=== PATIENT | male | born 1975 | race African-American/Black ===

== ENCOUNTER 2017-03-09 08:16 | Emergency (ER) | payer OTHER, BC ==
[2017-03-09] MEDS ORDERED: Morphine 4 MG/ML Syringe IVPUSH ONE ×2 (08:33→10:34)
[2017-03-09] MEDS ORDERED: Sodium Chloride 0.9% 1,000 ML IV ONE ×2 (08:33→11:06)
[2017-03-09] MEDS ORDERED: Sodium Chloride 0.9% 10 ML Syringe FLUSH PRN (08:33)
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
[2017-03-09 10:56] LABS: CHLORIDE,CL 104 mmol/L (98-107); SODIUM,NA 138 mmol/L (136-145)
[2017-03-09] MEDS ORDERED: Acetaminophen/HYDROcodone 325-10 MG Tab PO ONE (12:05)
[2017-03-09] MEDS ORDERED: Sodium Chloride 0.9% 100 ML IV ONE (14:18)
[2017-03-09] MEDS ORDERED: Iopamidol 612 MG/ML 100 ML Bottle IVPUSH ONE (14:18)
== END 2017-03-09 12:35 | disposition home or self-care (01) ==
LOC: VM.ED 08:16
DX: S61.239A Puncture wound without foreign body of unspecified finger without damage to nail, initial encounter (principal); M79.1 Myalgia; V43.52XA Car driver injured in collision with other type car in traffic accident, initial encounter; Y92.410 Unspecified street and highway as the place of occurrence of the external cause
CPT/HCPCS: 36415; 70450; 71260; 72125; 72128; 74177; 80053; 82550; 82553; 84484; 85025; 96361; 96374; 96376; 99285; A9270; G0480; J2270; J7030; J7050; Q9967; 93005